=== PATIENT | male | born 1995 | race Hispanic/Latino ===

== ENCOUNTER 2018-03-19 03:58 | Emergency (ER) | payer OTHER, SELFPAY ==
[2018-03-19] MEDS ORDERED: Adacel (T-DAP) 0.5 ML SYRINGE ONE (04:56)
== END 2018-03-19 05:03 | disposition home or self-care (01) ==
LOC: ERS 03:58
DX: S01.01XA Laceration without foreign body of scalp, initial encounter (principal); W25.XXXA Contact with sharp glass, initial encounter
CPT/HCPCS: 12001; 90471; 90715

== ENCOUNTER 2018-03-29 09:16 | Emergency (ER) | payer SELFPAY | END 2018-03-29 09:49 | disposition home or self-care (01) | LOC: ERS 09:16 | DX: S01.01XD Laceration without foreign body of scalp, subsequent encounter (principal) ==